=== PATIENT | female | born 1985 | race Caucasian/White ===

== ENCOUNTER 2016-07-22 14:28 | Emergency (ER) | payer OTHER ==
[~2016-07-22] VITALS: Ht 154.9 cm; Wt 90.7 kg
[~2016-07-22 14:28] MED LIST: ANAPROX DS550 MG PO; BENADRYL25 MG PO; CLARITIN10 MG PO; FLONASE 0.05% 121 EA NAS; HYDROCODONE BIT1 T11 PO; Motrin,Rufen800 MG PO; Orphenadrine C100 MG PO; PERCOCET 325 MG1 TA2 PO; PERCOCET 325 MG1 TA6 PO; TRAMADOL HCL50 MG PO; VITAMIN D50000 I3 PO; ZITHROMAX Z PA250 MG PO; ZITHROMAX250 MG PO
[2016-07-22] MEDS ORDERED: BACTROBAN CREAM15 GM T (14:47)
[2016-07-22] MEDS ORDERED: BACTRIM DS 8001 TA1 PO (14:47)
[2016-07-22] MEDS ORDERED: NAPROSYN500 MG PO (14:47)
== END 2016-07-22 14:50 | disposition home or self-care (01) ==
LOC: ED 14:28
DX: L02.31 Cutaneous abscess of buttock (principal); R03.0 Elevated blood-pressure reading, without diagnosis of hypertension; F17.200 Nicotine dependence, unspecified, uncomplicated; Z98.890 Other specified postprocedural states; Z88.1 Allergy status to other antibiotic agents

== ENCOUNTER 2016-12-12 16:42 | Emergency (ER) | payer OTHER ==
[~2016-12-12] VITALS: Ht 154.9 cm; Wt 90.7 kg
[~2016-12-12 16:42] MED LIST changes: +BACTRIM DS 8001 TA1 PO; +BACTROBAN CREAM15 GM T; +NAPROSYN500 MG PO
[2016-12-12 18:08] LABS: BASO # 0.1 10*3/uL (0.0-0.1); BASO % 0.6 % (0.0-1.0); EOS # 0.3 10*3/uL (0.0-0.4); EOS % 2.5 % (1.0-4.0); HEMATOCRIT 41.6 % (37.0-47.0); HEMOGLOBIN 14.1 g/dl (12.0-16.0); IG # 0.1 10*3/uL (0.0-0.1); LYMPH # 2.9 10*3/uL (1.3-4.4); MEAN CELL VOLUME 90.6 fl (81.0-99.0); MEAN CORPUSCULAR HGB 30.7 pg (27.0-31.0); MEAN CORPUSCULAR HGB CONC 33.9 g/dl (33.0-37.0); MEAN PLATELET VOLUME 9.4 fl (9.6-12.3); MONO # 0.4 10*3/uL (0.1-1.0); MONO % 4.2 % (3.0-9.0); NEUT # 6.3 10*3/uL (2.3-7.9); PLATELET COUNT AUTOMATED 329 10*3/uL (130-400); RED BLOOD COUNT 4.59 10*6/uL (4.10-5.10); RED CELL DISTRI WIDTH 11.9 % (0-14.5)
[2016-12-12 18:14] LABS: ALBUMIN 3.5 gm/dl (3.1-4.5); ALKALINE PHOSPHATASE 89 U/L (45-117); BILIRUBIN, TOTAL 0.2 mg/dl (0.2-1.0); BUN 6 mg/dl (7-24); CARBON DIOXIDE 23 mmol/L (21-32); CHLORIDE 107 mmol/L (98-107); EST GLOM FILT AFRICAN AMERICAN > 60 ml/min; GLUCOSE 93 mg/dL (65-99); POTASSIUM 3.7 mmol/L (3.5-5.1); SGOT/AST 21 IU/L (3-35); SGPT/ALT 37 U/L (12-78); SODIUM 141 mmol/L (136-145); TOTAL PROTEIN 7.8 gm/dL (6.4-8.2)
[2016-12-12 18:34] LABS: BILIRUBIN NEGATIVE (NEGATIVE); BLOOD NEGATIVE (NEGATIVE); CLARITY SL CLOUDY (CLEAR); COLOR YELLOW (YELLOW); GLUCOSE NEGATIVE (NEGATIVE); KETONE NEGATIVE (NEGATIVE); LEUKO ESTERASE 1+ (NEGATIVE); NITRITE NEGATIVE (NEGATIVE); PH 8.5 (5.0-9.0); PROTEIN NEGATIVE (NEGATIVE); UROBILINOGEN 0.2 E.U./dl (0.2-1.0)
[2016-12-12 18:48] LABS: BACTERIA 1+; EPITHELIAL CELLS 50-60; URINE REFLEX COMMENT YES (NO)
[2016-12-12] MEDS ORDERED: Motrin,Rufen800 MG PO (19:37)
[2016-12-12] MEDS ORDERED: BACTRIM DS 8001 TA1 PO (19:37)
[2016-12-12] MEDS ORDERED: CYCLOBENZAPRINE10 MG PO (19:37)
== END 2016-12-12 19:58 | disposition home or self-care (01) ==
LOC: ED 16:42
PROVIDERS: Registered Nurse
DX: N30.00 Acute cystitis without hematuria (principal); M54.6 Pain in thoracic spine; F17.200 Nicotine dependence, unspecified, uncomplicated; Z88.1 Allergy status to other antibiotic agents

== ENCOUNTER 2017-02-17 00:04 | Emergency (ER) | payer OTHER ==
[~2017-02-17] VITALS: Ht 154.9 cm; Wt 95.3 kg
[~2017-02-17 00:04] MED LIST changes: +CYCLOBENZAPRINE10 MG PO
== END 2017-02-17 01:46 | disposition home or self-care (01) ==
LOC: ED 00:04
DX: B27.90 Infectious mononucleosis, unspecified without complication (principal); Z88.1 Allergy status to other antibiotic agents

== ENCOUNTER 2017-10-06 19:04 | Inpatient (IN) | payer OTHER ==
[~2017-10-06] VITALS: Ht 154.9 cm; Wt 93.5 kg
[2017-10-06 19:06] VITALS: BP 127/77
[2017-10-06 19:25] LABS: BILIRUBIN NEGATIVE (NEGATIVE); BLOOD TRACE-INTACT (NEGATIVE); CLARITY CLEAR (CLEAR); COLOR YELLOW (YELLOW); GLUCOSE NEGATIVE (NEGATIVE); KETONE NEGATIVE (NEGATIVE); LEUKO ESTERASE NEGATIVE (NEGATIVE); NITRITE NEGATIVE (NEGATIVE); SPECIFIC GRAVITY 1.015 (1.005-1.030); UROBILINOGEN 0.2 E.U./dl (0.2-1.0)
[2017-10-06 19:38] LABS: BACTERIA 1+
[2017-10-06 20:20] LABS: HEMATOCRIT 42.7 % (37.0-47.0); HEMOGLOBIN 14.2 g/dl (12.0-16.0); MEAN CELL VOLUME 90.5 fl (81.0-99.0); MEAN CORPUSCULAR HGB 30.1 pg (27.0-31.0); MEAN CORPUSCULAR HGB CONC 33.3 g/dl (33.0-37.0); MEAN PLATELET VOLUME 9.1 fl (9.6-12.3); PLATELET COUNT AUTOMATED 317 10*3/uL (130-400); RED BLOOD COUNT 4.72 10*6/uL (4.10-5.10); RED CELL DISTRI WIDTH 11.9 % (0-14.5); WHITE BLOOD COUNT 25.9 10*3/uL (4.8-10.8)
[2017-10-06 20:36] LABS: ALBUMIN 3.9 gm/dl (3.1-4.5); ALKALINE PHOSPHATASE 90 U/L (45-117); BUN 7 mg/dl (7-24); CHLORIDE 104 mmol/L (98-107); CREATININE 0.73 mg/dL (0.55-1.02); POTASSIUM 3.7 mmol/L (3.5-5.1); SGOT/AST 17 IU/L (3-35); SGPT/ALT 26 U/L (12-78); SODIUM 138 mmol/L (136-145); TOTAL PROTEIN 8.3 gm/dL (6.4-8.2)
[2017-10-06 20:38] LABS: PLATELET SUFFICIENCY NORMAL (NORMAL); TOTAL CELLS COUNTED 100 #CELLS; TROPONIN I < 0.015 ng/ml (<0.045)
[2017-10-06 21:01] VITALS: BP 126/55
[2017-10-06 22:20] VITALS: BP 84/32
[2017-10-06 22:24] VITALS: BP 104/52
[2017-10-06 23:28] VITALS: BP 98/56
[2017-10-06 23:35] VITALS: BP 107/61
[2017-10-07 02:13] LABS: HEMATOCRIT 39.3 % (37.0-47.0); HEMOGLOBIN 12.9 g/dl (12.0-16.0); MEAN CELL VOLUME 91.6 fl (81.0-99.0); MEAN CORPUSCULAR HGB 30.1 pg (27.0-31.0); MEAN CORPUSCULAR HGB CONC 32.8 g/dl (33.0-37.0); MEAN PLATELET VOLUME 8.9 fl (9.6-12.3); PLATELET COUNT AUTOMATED 272 10*3/uL (130-400); RED BLOOD COUNT 4.29 10*6/uL (4.10-5.10); RED CELL DISTRI WIDTH 12.1 % (0-14.5); WHITE BLOOD COUNT 17.7 10*3/uL (4.8-10.8)
[2017-10-07 02:26] LABS: ACT PARTIAL THROMBO TIME 26.2 SECONDS (20.8-31.5); INTERNATIONAL NORM RATIO 1.1 (2.0-3.5)
[2017-10-07 02:28] LABS: ALBUMIN 3.2 gm/dl (3.1-4.5); ALKALINE PHOSPHATASE 83 U/L (45-117); BUN 6 mg/dl (7-24); CHLORIDE 108 mmol/L (98-107); CHOLESTEROL 170 mg/dL (<200); HDL CHOLESTEROL 34 mg/dl (40-60); LDL CHOLESTEROL 126 mg/dL (9-159); PHOSPHOROUS 3.1 mg/dL (2.5-4.9); POTASSIUM 3.9 mmol/L (3.5-5.1); SGOT/AST 22 IU/L (3-35); SGPT/ALT 33 U/L (12-78); SODIUM 138 mmol/L (136-145); TOTAL PROTEIN 7.1 gm/dL (6.4-8.2); TRIGLYCERIDES 52 mg/dl (<150); VLDL CHOLESTEROL 10 mg/dL (6-40)
[2017-10-07 02:31] LABS: PLATELET SUFFICIENCY NORMAL (NORMAL); TOTAL CELLS COUNTED 100 #CELLS
[2017-10-07 03:36] LABS: VITAMIN D, 25-HYDROXY 8.9 ng/mL (30-100)
[2017-10-07 08:00] VITALS: BP 107/53
[2017-10-07 12:00] VITALS: BP 119/61
[2017-10-07 16:00] VITALS: BP 104/56
[2017-10-07 20:00] VITALS: BP 108/61
[2017-10-08] VITALS: BP 112/56
[2017-10-08 08:00] VITALS: BP 120/64
[2017-10-08 08:18] LABS: HEMOGLOBIN 13.2 g/dl (12.0-16.0); MEAN CELL VOLUME 89.9 fl (81.0-99.0); MEAN CORPUSCULAR HGB 29.7 pg (27.0-31.0); MEAN PLATELET VOLUME 9.1 fl (9.6-12.3); PLATELET COUNT AUTOMATED 318 10*3/uL (130-400); RED BLOOD COUNT 4.45 10*6/uL (4.10-5.10); RED CELL DISTRI WIDTH 12.2 % (0-14.5); WHITE BLOOD COUNT 20.6 10*3/uL (4.8-10.8)
[2017-10-08] MEDS ORDERED: GUAIFENESIN-COD10 ML PO (08:28)
[2017-10-08] MEDS ORDERED: Vitamin D PO (08:28)
[2017-10-08] MEDS ORDERED: Cleocin150 MG PO (08:28)
[2017-10-08] MEDS ORDERED: PREDNISONE10 MG PO (08:28)
[2017-10-08 08:34] LABS: ALBUMIN 3.5 gm/dl (3.1-4.5); ALKALINE PHOSPHATASE 81 U/L (45-117); BUN 8 mg/dl (7-24); CHLORIDE 106 mmol/L (98-107); CREATININE 0.67 mg/dL (0.55-1.02); POTASSIUM 3.8 mmol/L (3.5-5.1); SGOT/AST 12 IU/L (3-35); SGPT/ALT 26 U/L (12-78); SODIUM 139 mmol/L (136-145); TOTAL PROTEIN 7.9 gm/dL (6.4-8.2)
[2017-10-08 08:37] LABS: PLATELET SUFFICIENCY NORMAL (NORMAL); TOTAL CELLS COUNTED 100 #CELLS
== END 2017-10-08 08:36 | disposition home or self-care (01) | DRG 871 ==
LOC: ED 19:04 → EDHOLD 22:35 → 4E 22:35
PROVIDERS: Hospitalist; Nurse Practitioner Family; Registered Nurse
DX: A41.9 Sepsis, unspecified organism (principal); J18.9 Pneumonia, unspecified organism; E44.0 Moderate protein-calorie malnutrition; E83.51 Hypocalcemia; L03.90 Cellulitis, unspecified; R73.9 Hyperglycemia, unspecified; E66.9 Obesity, unspecified; F17.290 Nicotine dependence, other tobacco product, uncomplicated; G56.00 Carpal tunnel syndrome, unspecified upper limb; J40 Bronchitis, not specified as acute or chronic; Z68.38 Body mass index [BMI] 38.0-38.9, adult; Z88.1 Allergy status to other antibiotic agents; Z88.8 Allergy status to other drugs, medicaments and biological substances; Z79.899 Other long term (current) drug therapy; Z87.440 Personal history of urinary (tract) infections; Z98.891 History of uterine scar from previous surgery; Z90.49 Acquired absence of other specified parts of digestive tract; Z83.3 Family history of diabetes mellitus; Z84.89 Family history of other specified conditions

== ENCOUNTER → 2018-02-06 | Outpatient (CLI) | payer OTHER ==
[~2018-02-06] MED LIST changes: +Cleocin150 MG PO; +GUAIFENESIN-COD10 ML PO; +PREDNISONE10 MG PO; +Vitamin D PO
== END | disposition home or self-care (01) ==
LOC: RAD 11:30
DX: M25.561 Pain in right knee (principal); M25.562 Pain in left knee

== ENCOUNTER → 2018-05-08 | Outpatient (CLI) | payer OTHER | END | disposition home or self-care (01) | LOC: RAD 10:45 | DX: J40 Bronchitis, not specified as acute or chronic (principal) ==